=== PATIENT | female | born 1995 | race Caucasian/White ===

== ENCOUNTER 2017-08-13 16:43 | Emergency (ER) | payer BC ==
[2017-08-13 16:54] VITALS: BP 126/65
--- NOTE | 2017-08-13 17:08 | UC ---
Complaint Female HPI - HPI Summary HPI Summary: urinary burning and frequency x 2 day no fever, no chills, no flank pain - History Of Current Complaint Chief Complaint: UCGU Stated Complaint: URINARY Time Seen by Provider: 08/13/17 17:03 Hx Obtained From: Patient Hx Last Menstrual Period: 08/06/17 Onset/Duration: Gradual Onset, Lasting Days - 2, Still Present Timing: Constant Severity Initially: Moderate Severity Currently: Moderate Character: Burning Aggravating Factor(s): Urination Associated Signs And Symptoms: Negative: Fever, Back Pain, Vaginal Bleeding/ Discharge, Vaginal Discharge, Nausea, Vomiting(# Of Episodes =), Genital Swelling, Genital Blisters, Retained Foregin Body (Specify) - Allergies/Home Medications Allergies/Adverse Reactions: Allergies Allergy/AdvReac Type Severity Reaction Status Date / Time No Known Allergies Allergy Verified 08/13/17 16:54 PMH/Surg Hx/FS Hx/Imm Hx Previously Healthy: Yes - Surgical History Surgical History: None - Family History Known Family History: Negative: Diabetes - Social History Alcohol Use: Rare Substance Use Type: None Smoking Status (MU): Never Smoked Tobacco - Immunization History Most Recent Influenza Vaccination: no 2017 Review of Systems Constitutional: Negative Skin: Negative Eyes: Negative ENT: Negative Respiratory: Negative Genitourinary: Dysuria, Frequency Is Patient Immunocompromised?: No All Other Systems Reviewed And Are Negative: Yes Physical Exam Triage Information Reviewed: Yes Appearance: Well-Appearing, No Pain Distress, Well-Nourished Vital Signs: Initial Vital Signs Temp 97.6 F 08/13/17 16:50 Pulse 84 08/13/17 16:50 Resp 15 08/13/17 16:50 BP 126/65 08/13/17 16:50 Pulse Ox 100 08/13/17 16:50 Vital Signs Reviewed: Yes Eyes: Positive: Conjunctiva Clear ENT: Positive: Normal ENT inspection, Hearing grossly normal, Pharynx normal Respiratory Exam: Normal Respiratory: Positive: Chest non-tender, Lungs clear, Normal breath sounds Cardiovascular: Positive: RRR, No Murmur, Pulses Normal Abdominal Exam: Normal Abdomen Description: Positive: Nontender, Soft. Negative: CVA Tenderness (R), CVA Tenderness (L), Distended, Guarding Bowel Sounds: Positive: Present Complaint Female Dx - Differential Dx/Diagnosis Provider Diagnoses: uti Discharge - Discharge Plan Condition: Stable Disposition: HOME Prescriptions: Sulfamethox/Trimethoprim DS* [Bactrim DS 800/160 TAB*] 1 tab PO BID #14 tab Patient Education Materials: Urinary Tract Infection in Women (ED) Referrals: Non Staff,Doctor [Primary Care Provider] - If Needed
--- NOTE | 2017-08-16 07:30 | UC ---
Progress - Progress Note Progress Note: NO CHANGE.
== END 2017-08-13 17:31 | disposition home or self-care (01) ==
LOC: UCCORT 16:43
DX: N39.0 Urinary tract infection, site not specified (principal); Z32.02 Encounter for pregnancy test, result negative
CPT/HCPCS: 81003; 84702; 87077; 87086; 87186; 99212; G0463

== ENCOUNTER 2017-11-26 09:24 | Emergency (ER) | payer OTHER, BC ==
[2017-11-26 10:04] VITALS: BP 106/60
--- NOTE | 2017-11-26 10:19 | UC ---
Complaint Female HPI - HPI Summary HPI Summary: 22 y/o female presents to the urgent care c/o itchy vaginal discharge for the past 2 days. Pt states she has used the Monistat w/o any relief. Pt states her vagina is irritated and swollen. LMP: 10/30/2017, sexually active. Last PAP 2017 negative. No Hx of STDs. Pt denies fever, urinary symptoms, pelvic pain, back pain, abdominal pain, N/V/D. - History Of Current Complaint Chief Complaint: UCGU Stated Complaint: PERSONAL Time Seen by Provider: 11/26/17 10:17 Hx Obtained From: Patient Hx Last Menstrual Period: 10/30/17 Onset/Duration: Gradual Onset, Lasting Days - 2 days, Still Present Timing: Constant Severity Initially: Mild Severity Currently: Moderate Pain Intensity: 5 Pain Scale Used: 0-10 Numeric Character: Burning Aggravating Factor(s): [place] Associated Signs And Symptoms: Positive: Vaginal Bleeding/Discharge, Genital Swelling. Negative: Fever, Back Pain - Risk Factors Ectopic Risk Factor: Negative Ovarian Torsion Risk Factor: Negative - Allergies/Home Medications Allergies/Adverse Reactions: Allergies Allergy/AdvReac Type Severity Reaction Status Date / Time No Known Allergies Allergy Verified 11/26/17 10:00 PMH/Surg Hx/FS Hx/Imm Hx Previously Healthy: Yes - Pt denies PMHX - Surgical History Surgical History: None - Family History Known Family History: Negative: Diabetes Family History: Dyslipidemia - Social History Occupation: Student Lives: With Family Alcohol Use: Rare Substance Use Type: None Smoking Status (MU): Never Smoked Tobacco - Immunization History Most Recent Influenza Vaccination: no 2016 Review of Systems Constitutional: Negative Skin: Negative Eyes: Negative ENT: Negative Respiratory: Negative Cardiovascular: Negative Gastrointestinal: Negative Genitourinary: Vaginal/Penile Itching, Vaginal/Penile Discharge Motor: Negative Neurovascular: Negative Musculoskeletal: Negative Neurological: Negative Psychological: Negative Is Patient Immunocompromised?: No All Other Systems Reviewed And Are Negative: Yes Physical Exam Triage Information Reviewed: Yes Vital Signs: Initial Vital Signs Temp 99.4 F 11/26/17 10:01 Pulse 79 11/26/17 10:01 Resp 18 11/26/17 10:01 BP 106/60 11/26/17 10:01 - Additional Comments Vital signs: reviewed General: Well developed, well nourished female sitting in the examining table w/ o any apparent distress. Head: Normocephalic, no lesions. Eyes: PERRLA, EOM's full, conjunctivae clear, fundi grossly normal. Ears: EAC's clear, TM's normal. Nose: Mucosa normal, no obstruction. Throat: Clear, no exudates, no lesions. Neck: Supple, no masses, no thyromegaly, no bruits. Chest: Lungs clear, no rales, no rhonchi, no wheezes. Heart: RR, no murmurs, no rubs, no gallops. Abdomen: Soft, no tenderness, no masses, BS normal. : Normal, no lesions, no discharge, no hernias noted. Pelvic: I was assited by the Nurse Octavia Bertrand. External genitalia within normal limits. There is no lesions there is no masses noted. Speculum exam: The vaginal cosby are within normal limits w/ normal profuse white cottage cheese vaginal discharge, no the lesions or rashes. The cervix is closed with no lesions or masses. There is no CMT's, and no adnexal masses. Sample sent Lab for affirm panel. Rectal: No lesions, no hemorrhoids, Back: Normal curvature, no tenderness. Extremities: FROM, no deformities, no edema, no erythema. Neuro: Physiological, no localizing findings. Skin: Normal, no rashes, no lesions noted. Complaint Female Dx - Course Course Of Treatment: 22 y/o female presents to the urgent care c/o itchy vaginal discharge for the past 2 days. Pt states she has used the Monistat w/o any relief. Pt states her vagina is irritated and swollen. LMP: 10/30/2017, sexually active. Last PAP 2017 negative. No Hx of STDs. Pt denies fever, urinary symptoms, pelvic pain, back pain, abdominal pain, N/V/D. Hx obtained. Speculum exam: I was assited by Nurse Masha Bertrand, The vaginal cosby are within normal limits white profuse white cottage cheese vaginal discharge, no lesions or rashes. The cervix is closed with mild surrounding erythema, no masses. There is no CMT's, and no adnexal masses. Sample sent to Lab for affirm panel. UA: + trace leukoesterase, trace ketones, bilirubin trace. test :negative. Pt Rx Fluconazole PO and Advised she will be notified if any abnormal result from lab. Pt understood and agreed with plan of care. - Differential Dx/Diagnosis Differential Diagnosis/HQI/PQRI: Pelvic Inflammatory Disease, , Sexually Transmitted Disease, Urinary Tract Infection Provider Diagnoses: 1- Vulvovaginal Candidiasis Discharge - Discharge Plan Condition: Stable Disposition: HOME Prescriptions: Fluconazole [Fluconazole 150 mg tab] 150 mg PO DAILY #3 tab Patient Education Materials: Vulvovaginal Candidiasis (ED) Referrals: [facility] [place] [facility] [Outside] - 1 Week Additional Instructions: 1- Please take medications as directed. 2- Specimen were sent to lab, if anything abnormal you will receive a call from us for further treatment. 3-If not improvement of symptoms please return to the urgetn care or f/u with your SUPPLY TECH for further treatment
== END 2017-11-26 11:04 | disposition home or self-care (01) ==
LOC: UCCORT 09:24
DX: B37.3 Candidiasis of vulva and vagina (principal); Z32.02 Encounter for pregnancy test, result negative
CPT/HCPCS: 81003; 84702; 87086; 87480; 87510; 99212; G0463